=== PATIENT | male | born 1955 | race African-American/Black ===

== ENCOUNTER 2017-03-17 01:55 | Emergency (ER) | payer OTHER ==
[~2017-03-17] VITALS: Ht 182.9 cm; Wt 121.0 kg
[2017-03-17 02:03] VITALS: Ht 182.9 cm; Wt 121.0 kg
--- NOTE | 2017-03-17 04:40 | ERA ---
ER Documentation Chief Complaint Date/Time DATE: 03/17/17 TIME: 04:36 Chief Complaint right ear ache x 6 days HPI Patient complains of feeling there is a bug in his right ear. Patient has been a contact with bedbugs in the past 2 weeks. Patient's symptoms started about 4 days ago. Patient denies dizziness, headache, fever, ear pain, jaw claudication , change of vision, tinnitus or difficulty breathing. Denies recent viral illness. There are no other associated manifestations. Patient has no other complaints at this time. ROS All systems reviewed and are negative except as per history of present illness. Allergies Allergies: Coded Allergies: Penicillins (Verified Allergy, Unknown, 03/17/17) PMhx/Soc Medical and Surgical Hx: pt denies Medical Hx, pt denies Surgical Hx History of Surgery: No Anesthesia Reaction: No Hx Neurological Disorder: No Hx Respiratory Disorders: No Hx Cardiac Disorders: Yes (HTN) Hx Psychiatric Problems: No Hx Miscellaneous Medical Probl: No Hx Alcohol Use: Yes Hx Substance Use: No Hx Tobacco Use: No Physical Exam Vitals Vital Signs Date Time Temp Pulse Resp B/P Pulse Ox O2 Delivery O2 Flow Rate FiO2 03/17/17 02:03 98.4 64 20 167/80 98 Physical Exam Const: Morbidly obese 62-year-old male Head: Atraumatic Eyes: Normal Conjunctiva ENT: Normal External Ears, Nose and Mouth. Mild cerumen. Left ear is unremarkable. Ophthalmoscope of the right ear reveals moderate erythematous tympanic membrane. Cone light reflex is visible in both ears bilaterally. Neck: Full range of motion..~ No meningismus. Resp: Clear to auscultation bilaterally Cardio: Regular rate and rhythm, no murmurs Abd: Soft, non tender, non distended. Normal bowel sounds Skin: No petechiae or rashes Back: No midline or flank tenderness Ext: No cyanosis, or edema Neur: Awake and alert Psych: Normal Mood and Affect Procedures/MDM Workup for evaluation of feeling there is something in patient's right ear. Patient's symptoms are 4 days ago. On initial visualization with ophthalmoscope of the right ear no foreign bodies are seen although cerumen was hindering complete view. Ear irrigation and cleaning was ordered. After reevaluation there is no change. Exam was significant for an erythematous tympanic membrane there is neither retracting or bulging. Most likely diagnosis is acute otitis media the right ear. Departure Diagnosis: Primary Impression: Ear problem Qualified Code: H93.91 - Ear problem, right Condition: Stable Additional Instructions: Follow up with your PCP within the next 1-3 days for a more thorough evaluation and a possible referral to a specialist. Return the the emergency department immediately if symptoms worsen or change. If you have any questions regarding medications, ask your pharmacist or us before you leave. If any adverse reactions occur while taking your medications, discontinue the treatment and return to the emergency department immediately. Take your medications as directed, and complete the entire course of treatment. SONAL CORTEZ PA-C March 17, 2017 04:40
[2017-03-17] MEDS ORDERED: AZIT250T94 PO (04:42)
[2017-03-17] MEDS ORDERED: AZIT500T3 PO (04:42)
[2017-03-17 05:07] VITALS: BP 160/94; PULSE 56; RESP 20
== END 2017-03-17 05:07 | disposition home or self-care (01) ==
LOC: FTE 01:55
DX: H93.91 Unspecified disorder of right ear (principal); I10 Essential (primary) hypertension
CPT/HCPCS: 99283

== ENCOUNTER 2017-03-26 21:58 | Emergency (ER) | payer OTHER ==
[~2017-03-26] VITALS: Ht 160 cm; Wt 120.0 kg
[~2017-03-26 21:58] MED LIST: AZIT250T94 PO; AZIT500T3 PO
[2017-03-26 22:09] VITALS: Ht 160 cm; Wt 120.0 kg
[2017-03-27] MEDS ORDERED: CETI10CA PO (02:40)
--- NOTE | 2017-03-27 02:45 | ERD ---
ER Documentation Chief Complaint Date/Time DATE: 03/27/17 TIME: 02:42 Chief Complaint RIGHT EAR itching. HPI 62-year-old male presents to emergency department for complaints of right ear itching for 1 week now, feels like a bug is inside his ear. Patient denies any pain. Patient denies any ear discharge. Patient did not take any medications to help with symptoms. Patient was recently diagnosed with an ear infection, the pain has resolved, finish course of antibiotics. Patient denies any problems with hearing. ROS All systems reviewed and are negative except as per history of present illness. Medications Home Meds Active Scripts Cetirizine Hcl* (Zyrtec*) 10 Mg Capsule, 10 MG PO DAILY, #30 TAB.CHEW Prov:LEENA DYSON NP 03/27/17 Azithromycin* (Zithromax*) 250 Mg Tablet, 250 MG PO DAILY for 4 Days, TAB Prov:SONAL CORTEZ PA-C 03/17/17 Azithromycin* (Zithromax*) 500 Mg Tablet, 500 MG PO DAILY for 1 Day, TAB Prov:SONAL CORTEZ PA-C 03/17/17 Allergies Allergies: Coded Allergies: Penicillins (Verified Allergy, Unknown, 03/26/17) PMhx/Soc History of Surgery: No Anesthesia Reaction: No Hx Neurological Disorder: No Hx Respiratory Disorders: No Hx Cardiac Disorders: Yes (HTN) Hx Psychiatric Problems: No Hx Miscellaneous Medical Probl: No Hx Alcohol Use: Yes Hx Substance Use: No Hx Tobacco Use: No FmHx Family History: No coronary disease, No diabetes, No other Physical Exam Vitals Vital Signs Date Time Temp Pulse Resp B/P Pulse Ox O2 Delivery O2 Flow Rate FiO2 03/26/17 22:09 98.1 69 20 132/85 98 Physical Exam GENERAL: The patient is well developed and appropriate for usual state of health, in no apparent distress. HEENT: Atraumatic. Ears: Normal tympanic membrane, no erythema or bulging. No ear canal swelling. No ear discharge. No foreign body noted in the ear. Noted right ear canal to be erythematous. Nose: normal nasal turbinates, no erythema or swelling. Normal nasal discharge. Throat: oropharynx clear. No tonsillar swelling or tonsillar exudates. No lymphadenopathy. CHEST: Clear to auscultation bilaterally. There are no rales, wheezes or rhonchi. HEART: Regular rate and rhythm. No murmurs, clicks, rubs or gallops. No S3 or S4. ABDOMEN: Soft, nontender and nondistended. Good bowel sounds. No rebound or guarding. No gross peritonitis. No gross organomegaly or masses. No Mercer sign or McBurney point tenderness. BACK: No midline or flank tenderness. EXTREMITIES: Equal pulses bilaterally. There is no peripheral clubbing, cyanosis or edema. No focal swelling or erythema. Full range of motion. Grossly neurovascularly intact. NEURO: Alert and oriented. Cranial nerves 2-12 intact. Motor strength in all 4 extremities with 5/5 strength. Sensation grossly intact. Normal speech and gait. SKIN: There is no apparent rash or petechia. The skin is warm and dry. HEMATOLOGIC AND LYMPHATIC: There is no evidence of excessive bruising or lymphedema. No gross cervical, axillary, or inguinal lymphadenopathy. Procedures/MDM Medical decision making: Patient's itching in the right ear, most likely can be allergy related. No symptoms of ear infection, no symptoms of mastoiditis or otitis media, otitis externa. No foreign body in the ear. Patient is a prescription for Zyrtec, patient is advised to return to emergency department for worsening symptoms. Departure Diagnosis: Primary Impression: Itching of ear Condition: Stable Patient Instructions: Seasonal Allergy LEENA DYSON NP March 27, 2017 02:45
[2017-03-27 03:02] VITALS: BP 125/72; PULSE 72; RESP 20; TEMP 98.3
== END 2017-03-27 03:00 | disposition home or self-care (01) ==
LOC: FTE 21:58
DX: H61.891 Other specified disorders of right external ear (principal); I10 Essential (primary) hypertension
CPT/HCPCS: 99283

== ENCOUNTER 2017-05-26 18:13 | Emergency (ER) | payer OTHER ==
[~2017-05-26] VITALS: Ht 177.8 cm; Wt 121.0 kg
[~2017-05-26 18:13] MED LIST changes: +CETI10CA PO
[2017-05-26 18:15] VITALS: Ht 177.8 cm; Wt 121.0 kg
--- NOTE | 2017-05-26 19:52 | RADRPT ---
PROCEDURE: XR right elbow. CLINICAL INDICATION: Right elbow pain and swelling. TECHNIQUE: Three views. Frontal, lateral, and oblique. COMPARISON: No prior study is available for comparison. FINDINGS: There is no fracture or dislocation. There is diffuse soft tissue swelling. There is no joint effusion. Articular surfaces are intact. There is no lytic or blastic lesion. There is no radiopaque foreign body. IMPRESSION: 1. Diffuse soft tissue swelling. 2. No joint effusion. 3. Otherwise unremarkable images of the right elbow. RPTAT: QQ .Phil Irwin MD, MD Date Time Electronically viewed and signed by .Phil Irwin MD, MD on 05/26/2017 19:52 .R/
[2017-05-26] MEDS ORDERED: IBUP400T22 PO (20:22)
--- NOTE | 2017-05-26 20:35 | ERD ---
ER Documentation Chief Complaint Date/Time DATE: 05/26/17 TIME: 20:28 Chief Complaint POSSIBLE BITE ON RT ELBOW /SWELLING HPI 62-year-old male patient with no significant past medical history presents to the ED complaining of swelling noted on the top portion of patient's right elbow that started yesterday. Denies any pain or itchiness. Denies any injuries or trauma. Denies any fever, chills, loss of sensation, loss of range of motion, nausea, vomiting. Denies any redness. ROS All systems reviewed and are negative except as per history of present illness. Medications Home Meds Active Scripts Ibuprofen* (Motrin*) 400 Mg Tab, 400 MG PO Q6, #30 TAB take with food Prov:TIMO IVY PA-C 05/26/17 Cetirizine Hcl* (Zyrtec*) 10 Mg Capsule, 10 MG PO DAILY, #30 TAB.CHEW Prov:LEENA DYSON NP 03/27/17 Azithromycin* (Zithromax*) 250 Mg Tablet, 250 MG PO DAILY for 4 Days, TAB Prov:SONAL CORTEZ PA-C 03/17/17 Azithromycin* (Zithromax*) 500 Mg Tablet, 500 MG PO DAILY for 1 Day, TAB Prov:SONAL CORTEZ PA-C 03/17/17 Allergies Allergies: Coded Allergies: Penicillins (Verified Allergy, Unknown, 05/26/17) PMhx/Soc History of Surgery: Yes (hand, right knee) Anesthesia Reaction: No Hx Neurological Disorder: No Hx Respiratory Disorders: No Hx Cardiac Disorders: Yes (HTN) Hx Psychiatric Problems: No Hx Miscellaneous Medical Probl: No Hx Alcohol Use: Yes Hx Substance Use: No Hx Tobacco Use: No Smoking Status: Never smoker Physical Exam Vitals Vital Signs Date Time Temp Pulse Resp B/P Pulse Ox O2 Delivery O2 Flow Rate FiO2 05/26/17 18:15 98.0 90 18 138/81 98 Physical Exam Const: [id number], well-nourished. In no acute distress. Head: Atraumatic, normocephalic Eyes: Normal Conjunctiva without injection ENT: Normal external ear, nose and mouth. Neck: Full range of motion. No meningismus. Resp: Clear to auscultation bilaterally. No wheezing, rhonchi, rales, or crackles. No accessory muscle use. No retractions. Cardio: Regular rate and rhythm, no murmurs Skin: No petechiae or rashes Back: No midline tenderness. No CVA tenderness. Ext: No cyanosis, or edema. Cap refill less than 2 seconds. Distal pulses intact bilaterally. Edema noted inferior portion of patient's right elbow with no erythema, warmth to touch or fluctuance. No induration. Full range of motion noted with supination, pronation, flexion, extension of bilateral elbows. Neur: Awake and alert. Normal gait and coordination. Muscle strength 5/5. Sensation intact bilaterally. Psych: Normal Mood and Affect Procedures/MDM 62-year-old male patient with no sniffing a past medical history presents to the ED complaining of swelling noted on the upper right elbow. Patient is afebrile and nontoxic-appearing. Patient has normal vital signs. A right elbow x-ray was ordered to further evaluate patient. PROCEDURE: XR right elbow. CLINICAL INDICATION: Right elbow pain and swelling. TECHNIQUE: Three views. Frontal, lateral, and oblique. COMPARISON: No prior study is available for comparison. FINDINGS: There is no fracture or dislocation. There is diffuse soft tissue swelling. There is no joint effusion. Articular surfaces are intact. There is no lytic or blastic lesion. There is no radiopaque foreign body. IMPRESSION: 1. Diffuse soft tissue swelling. 2. No joint effusion. 3. Otherwise unremarkable images of the right elbow. Patient has full range of motion with flexion, extension, supination and pronation. There is low suspicion for septic arthritis. Low suspicion for scabies, SJS/TEN, erythema multiforme, sepsis, cellulitis, necrotizing fascitis , gangrene, meningococcemia or other emergent conditions. Patient is neurovascularly intact. Patient's extremity symptoms have stabilized while they have been evaluated in the department and are appropriate for outpatient follow up.. Low suspicion for abscess, fractures, dislocations, compartment syndrome, neurologic injury, vascular injury, open joint, open fracture, tendon laceration , septic arthritis, osteomyelitis, DVT, foreign body, or other emergent conditions. Discharge medications: Ibuprofen Follow up with primary care physician in 1-2 days for further evaluation and treatment. Instructed patient to return to the ED sooner for any worsening symptoms. Patient's questions were answered. Patient understood and agreed with discharge plan. Patient discharged stable. Departure Diagnosis: Primary Impression: Soft tissue swelling Condition: Stable Patient Instructions: Contusion, Soft Tissue, Bursitis, Elbow (Olecranon) Referrals: [facility] YOU HAVE RECEIVED A MEDICAL SCREENING EXAM AND THE RESULTS INDICATE THAT YOU DO NOT HAVE A CONDITION THAT REQUIRES URGENT TREATMENT IN THE EMERGENCY DEPARTMENT. FURTHER EVALUATION AND TREATMENT OF YOUR CONDITION CAN WAIT UNTIL YOU ARE SEEN IN YOUR DOCTORS OFFICE WITHIN THE NEXT 1-2 DAYS. IT IS YOUR RESPONSIBILITY TO MAKE AN APPOINTMENT FOR FOLOW-UP CARE. IF YOU HAVE A PRIMARY DOCTOR --you should call your primary doctor and schedule an appointment IF YOU DO NOT HAVE A PRIMARY DOCTOR YOU CAN CALL OUR PHYSICIAN REFERRAL HOTLINE AT IF YOU CAN NOT AFFORD TO SEE A PHYSICIAN YOU CAN CHOSE FROM THE FOLLOWING [facility] [address] [facility]. [facility] [address] [facility] [facility] [address] [facility] [facility] [address] [facility] [facility] [address] [facility]. [facility] [address] [facility]. [facility] YOU HAVE RECEIVED A MEDICAL SCREENING EXAM AND THE RESULTS INDICATE THAT YOU DO NOT HAVE A CONDITION THAT REQUIRES URGENT TREATMENT IN THE EMERGENCY DEPARTMENT. FURTHER EVALUATION AND TREATMENT OF YOUR CONDITION CAN WAIT UNTIL YOU ARE SEEN IN YOUR DOCTORS OFFICE WITHIN THE NEXT 1-2 DAYS. IT IS YOUR RESPONSIBILITY TO MAKE AN APPOINTMENT FOR FOLOW-UP CARE. IF YOU HAVE A PRIMARY DOCTOR --you should call your primary doctor and schedule and appointment IF YOU DO NOT HAVE A PRIMARY DOCTOR YOU CAN CALL OUR PHYSICIAN REFERRAL HOTLINE AT . IF YOU CAN NOT AFFORD TO SEE A PHYSICIAN YOU CAN CHOSE FROM THE FOLLOWING [facility] INSTITUTIONS[facility] [address] [place] [address] [facility] [address] [place] [address] [facility] [address] [place] [address] [facility] Additional Instructions: Call your primary care doctor TOMORROW for an appointment during the next 2-3 days for further evaluation and treatment.See the doctor sooner or return here if your condition worsens before your appointment time - fever, increased swelling, redness, decreased range of motion, severe pain, etc. TIMO IVY PA-C May 26, 2017 20:35
== END 2017-05-26 20:35 | disposition home or self-care (01) ==
LOC: FTE 18:13
DX: R22.31 Localized swelling, mass and lump, right upper limb (principal); I10 Essential (primary) hypertension
CPT/HCPCS: 73080; Z7502

== ENCOUNTER 2018-01-29 12:40 | Emergency (ER) | END 2018-01-29 16:02 | disposition home or self-care (01) ==

== ENCOUNTER 2019-07-05 14:13 | Emergency (ER) | payer OTHER ==
[~2019-07-05] VITALS: Ht 177.8 cm; Wt 116.7 kg
[~2019-07-05 14:13] MED LIST changes: +AMLO-147 PO; +ASPI-1046 PO; -AZIT250T94 PO; -AZIT500T3 PO; -CETI10CA PO; +FLUT16SP17 NASAL; +HYDR-4011 PO; +HYDR12.58 PO; +LACR35O OP; +LISI2.5T59 PO; +LORA10TA3 PO; +MED4DP PO; +POTA10TA37 PO; +PRED10TA PO; +TAMS0.4C2 PO; +VALA10004 PO; +VALA500T PO
[2019-07-05 14:24] VITALS: Ht 177.8 cm; Wt 116.7 kg
[2019-07-05] MEDS ORDERED: ONDANSETRON 4 MG INJ IV STA (17:55)
[2019-07-05] MEDS ORDERED: HYDROmorphONE 1 MG/ML SYG IV STA (17:55)
[2019-07-05 20:15] VITALS: BP 126/75; PULSE 56; RESP 14
== END 2019-07-05 20:23 | disposition home or self-care (01) ==
LOC: E/R 14:13
DX: B02.9 Zoster without complications (principal); I10 Essential (primary) hypertension; Z79.82 Long term (current) use of aspirin
CPT/HCPCS: 36415; 71045; 80048; 84484; 85025; 93005; 96374; 96375; 99285; J1170; J2405